=== PATIENT | female | born 1955 | race Asian ===

== ENCOUNTER 2020-06-26 08:27 | Day surgery (SDC) | payer OTHER, SELFPAY ==
[~2020-06-26] VITALS: Ht 162.6 cm; Wt 63.5 kg
[2020-06-26 08:44] VITALS: BP 141/79
[2020-06-26 13:15] VITALS: BP 116/77
== END 2020-06-26 12:30 | disposition home or self-care (01) ==
LOC: GI 08:27 → OR 10:30 → DS 10:30 → GI 12:30
PROVIDERS: ATTEND Surgery
DX: Z12.11 Encounter for screening for malignant neoplasm of colon (principal); K64.8 Other hemorrhoids; Z86.010 Personal history of colon polyps; Z79.82 Long term (current) use of aspirin
CPT/HCPCS: 45378; J1200; J1610; J2250; J2310; J3010; J3490